=== PATIENT | male | born 1975 | race Caucasian/White ===

== ENCOUNTER 2016-11-08 02:22 | Emergency (ER) ==
[2016-11-08 02:23] VITALS: BMI 39.9
[2016-11-08] MEDS ORDERED: SODIUM CHLORIDE 1,000 ML IV STA (02:26)
[2016-11-08] MEDS ORDERED: ZOFRAN 4 MG/2 ML IVP STA (02:26)
--- NOTE | 2016-11-08 02:28 | ED.PDOC ---
General ED Provider: Dr. ZHAO BLANCHARD Chief Complaint: Abdominal Pain Stated Complaint: Patient comes to the ER with chronic abdominal pain unchanged. he states he recently changed doctors. Admits to Nausea but denies any vomiting. But has diarrhea althought he takes lactulose which should help his diarrhea. Time Seen by Physician: 02:35 Information Source: Patient Exam Limitations: No limitations Primary Care Provider: DILAN FIGUEROA Nursing and Triage Documentation Reviewed and Agree: Yes GI Complaint Exam - Abdominal Pain Complaint/Exam Onset: Gradual Duration: 1 day Symptoms Are: Still present Timing: Constant Location of Pain: Diffuse Character: Reports: Dull, Aching Aggravating: Reports: Food Associated Signs and Symptoms: Reports: Nausea, Diarrhea. Denies: Diaphoresis, Fever, Cough, Chest pain, Dizziness, Back pain, Constipation, Blood in stool, Dysuria, Urinary frequency, Decreased urine output, Decreased appetite, Discharge, Vomiting, Decreased activity Review of Systems - Review Of Systems Constitutional: Reports: No symptoms GI: Reports: Abdominal pain, Nausea. Denies: Vomiting All Other Systems: Reviewed and Negative Past Medical History - Past Medical History Previously Healthy: No Endocrine: Reports: None Cardiovascular: Reports: None Respiratory: Reports: None Hematological: Reports: None Gastrointestinal: Reports: GERD, Liver (cirrosis), Gallstones, Pancreatitis Genitourinary: Reports: None Neuro/Psych: Reports: Migraine, Anxiety, Depression Musculoskeletal: Reports: None Cancer: Reports: None - Surgical History General Surgical History: Reports: Cholecystectomy, Unknown - Family History Family History: Reports: Unknown - Social History Smoking Status: Former smoker Hx Substance Use: No (Hx ETOH abuse, Freq ER visits receives dilaudid) Alcohol Screening: None Physical Exam - Physical Exam Appearance: Well-appearing, Obese Eyes: SULEIMAN, EOMI, Conjunctiva clear ENT: Ears normal, Nose normal, Oropharynx normal Neck: Supple Respiratory: Airway patent, Breath sounds clear, Breath sounds equal, Respirations nonlabored Cardiovascular: RRR, Pulses normal, No rub, No murmur GI/: Soft, Nontender Musculoskeletal: Normal strength, ROM intact, No edema, No calf tenderness Skin: Warm, Dry, Normal color Neurological: Sensation intact, Motor intact, Reflexes intact, Cranial nerves intact, Alert, Oriented Psychiatric: Affect appropriate, Mood appropriate Re-Evaluation - Re-Evaluation Time of Re-Evaluation: 03:15 Status: Improved Vital Signs Stable: Yes Pain Level: mild Appearance: NAD Critical Care Note - Critical Care Note Total Time (mins): 0 Course - Course Hematology/Chemistry: 11/08/16 02:40 11/08/16 02:40 Orders, Labs, Meds: Lab Review 11/08/16 11/08/16 02:40 02:46 WBC 2.99 L RBC 3.93 L Hgb 12.5 L Hct 37.4 L MCV 95.2 H MCH 31.8 H MCHC 33.4 RDW Coeff of Shana 13.5 Plt Count 61 L Immature Gran % (Auto) 0.0 Neut % (Auto) 57.5 Lymph % (Auto) 28.1 [place] % (Auto) 10.7 H Eos % (Auto) 3.0 Baso % (Auto) 0.7 Immature Gran # (Auto) 0.0 Neut # 1.7 L Lymph # 0.8 [place] # 0.3 L Eos # 0.1 Baso # 0.0 Sodium 142 Potassium 3.6 Chloride 108 H Carbon Dioxide 29 Anion Gap 8.6 BUN 6 L Creatinine 0.79 Estimated GFR (MDRD) 109.00 BUN/Creatinine Ratio 7.59 Glucose 151 H Calcium 8.8 Total Bilirubin 2.18 H AST 46 H ALT 22 Alkaline Phosphatase 189 H Total Protein 6.6 Albumin 3.5 Globulin 3.1 Albumin/Globulin Ratio 1.13 Amylase 94 Lipase 21 Urine Color Yellow Urine Clarity Clear Urine pH 7.5 Ur Specific [place] 1.020 Urine Protein Negative Urine Glucose (UA) Negative Urine Ketones Negative Urine Blood Negative Urine Nitrite Negative Urine Bilirubin Negative Urine Urobilinogen 4.0 Ur Leukocyte Esterase Negative Orders Category Date Time Status ED IV/MEDIPORT/POWERPORT .ONCE EMERGENCY 11/08/16 02:27 Inactive AMYLASE Stat LAB 11/08/16 02:40 Completed CBC W/ AUTO DIFF Stat LAB 11/08/16 02:40 Completed COMPREHENSIVE METABOLIC PANEL Stat LAB 11/08/16 02:40 Completed LIPASE Stat LAB 11/08/16 02:40 Completed URINALYSIS C & S IF INDICATED Stat LAB 11/08/16 02:46 Completed 0.9 % Sodium Chloride [Saline Flush] MEDS 11/08/16 02:27 Discontinued 1 syr IVF PRN PRN Ondansetron HCl/Pf [Zofran 4 mg/2 ml] MEDS 11/08/16 02:42 Discontinued 4 mg IM ONCE STA Medications Discontinued Medications Generic Name Dose Route Start Last Admin Trade Name Freq PRN Reason Stop Dose Admin Ondansetron HCl 4 mg 11/08/16 02:42 11/08/16 03:00 Zofran 4 Mg/2 Ml IM 11/08/16 02:43 4 mg ONCE STA Administration Sodium Chloride 1 syr 11/08/16 02:27 Saline Flush IVF PRN PRN To flush IV Vital Signs: Temp Pulse Resp BP Pulse Ox 11/08/16 02:25 99.6 F 74 20 135/88 96 Departure - Departure Time of Disposition: 03:20 Disposition: HOME SELF-CARE Discharge Problem: Abdominal pain, Chronic abdominal pain Chronic pancreatitis Qualifiers: Pancreatitis type: unspecified pancreatitis type Qualifier Code: (K86.1) Other chronic pancreatitis Instructions: Abdominal Pain (ED) Condition: Fair Pt referred to PMD for follow-up: Yes Additional Instructions: Continue taking your lactulose Follow up with Your PCP in 3 days Prescriptions: Dicyclomine HCl [Bentyl] 10 mg PO TID PRN #20 capsule PRN Reason: Abdominal Pain Allergies/Adverse Reactions: Allergies No Known Allergies Allergy (Verified 11/08/16 02:30) Home Medications: Ambulatory Orders Famotidine [Pepcid] 20 mg PO QDAC 04/23/16 Dicyclomine HCl [Bentyl] 20 mg PO DAILY 05/07/16 Dicyclomine HCl [Bentyl] 10 mg PO TID PRN #20 capsule 11/08/16 Omeprazole Magnesium [Prilosec Otc] 20 mg PO DAILY 11/08/16 Disposition Discussed With: Patient
[2016-11-08 02:36] VITALS: BP 135/88; TEMP 99.6
[2016-11-08] MEDS ORDERED: ZOFRAN 4 MG/2 ML IM STA (02:42)
[2016-11-08 02:46] LABS: BASOPHILS % (AUTO) 0.7 % (0.0-3.0); EOSINOPHILS # (AUTO) 0.1 K/ul (0.0-0.7); HEMATOCRIT 37.4 % (42.0-52.0); HEMOGLOBIN 12.5 g/dl (14.0-18.0); LYMPHOCYTES # (AUTO) 0.8 K/uL (0.60-3.4); LYMPHOCYTES % (AUTO) 28.1 (10.0-50.0); MEAN CORPUSCULAR HEMOGLOBIN 31.8 pg (27.0-31.0); MEAN CORPUSCULAR HGB CONC 33.4 (31.8-35.4); MEAN CORPUSCULAR VOLUME 95.2 fl (80.0-94.0); MONOCYTES # (AUTO) 0.3 K/uL (0.4-2.0); MONOCYTES % (AUTO) 10.7 (0-10); NEUTROPHILS # (AUTO) 1.7 K/ul (2.0-6.9); NEUTROPHILS % (AUTO) 57.5; PLATELET COUNT 61 10^3/uL (140-440); RED BLOOD COUNT 3.93 10^6/ul (4.70-6.10); WHITE BLOOD COUNT 2.99 K/ul (4.2-10.2)
[2016-11-08 02:51] LABS: BILIRUBIN,URINE Negative (NEGATIVE); KETONES,URINE Negative (NEGATIVE); LEUKOCYTE ESTERASE ,URINE Negative (NEGATIVE); NITRITE,URINE Negative (NEGATIVE); PH,URINE 7.5 (5-9); PROTEIN,URINE Negative (NEGATIVE); URINE, BLOOD Negative (NEGATIVE)
[2016-11-08 02:52] LABS: ADD URINE MICROSCOPIC NO
[2016-11-08 03:06] LABS: ALBUMIN 3.5 g/dL (3.4-5.0); ALBUMIN/GLOBULIN RATIO 1.13; ANION GAP 8.6; BILIRUBIN,TOTAL 2.18 mg/dL (0.00-1.20); BUN/CREATININE RATIO 7.59; CALCIUM 8.8 mg/dL (8.2-10.2); CREATININE 0.79 mg/dL (0.60-1.10); POTASSIUM 3.6 mmol/L (3.5-5.1); TOTAL PROTEIN 6.6 g/dL (6.4-8.2)
== END 2016-11-08 03:25 | disposition home or self-care (01) ==
LOC: ED 02:22
DX: K86.1 Other chronic pancreatitis (principal); Z87.19 Personal history of other diseases of the digestive system
CPT/HCPCS: 36415; 80053; 81001; 82150; 83690; 85025; 96372; 99283

== ENCOUNTER 2016-11-17 07:40 | Emergency (ER) ==
[2016-11-17 07:41] VITALS: BMI 39.9
[2016-11-17 07:50] VITALS: BP 150/91; TEMP 99.9
[2016-11-17] MEDS ORDERED: ZOFRAN 4 MG/2 ML IM STA (07:55)
[2016-11-17 08:23] LABS: BASOPHILS % (AUTO) 0.5 % (0.0-3.0); EOSINOPHILS # (AUTO) 0.1 K/ul (0.0-0.7); EOSINOPHILS % (AUTO) 1.3 % (0.0-7.0); HEMATOCRIT 41.4 % (42.0-52.0); HEMOGLOBIN 13.6 g/dl (14.0-18.0); IMMATURE GRANULOCYTE % (AUTO) 0.3 % (0.0-5.0); LYMPHOCYTES # (AUTO) 0.7 K/uL (0.60-3.4); LYMPHOCYTES % (AUTO) 18.3 (10.0-50.0); MEAN CORPUSCULAR HEMOGLOBIN 31.1 pg (27.0-31.0); MEAN CORPUSCULAR HGB CONC 32.9 (31.8-35.4); MEAN CORPUSCULAR VOLUME 94.7 fl (80.0-94.0); MONOCYTES # (AUTO) 0.5 K/uL (0.4-2.0); MONOCYTES % (AUTO) 11.9 (0-10); NEUTROPHILS # (AUTO) 2.7 K/ul (2.0-6.9); NEUTROPHILS % (AUTO) 67.7; PLATELET COUNT 68 10^3/uL (140-440); RED BLOOD COUNT 4.37 10^6/ul (4.70-6.10); WHITE BLOOD COUNT 3.94 K/ul (4.2-10.2)
--- NOTE | 2016-11-17 08:40 | CT ---
Exam: CT abdomen and pelvis without IV contrast. Clinical indication: Abdominal pain. No further information is provided. Comparison is made to the prior study dated 09/26/2016. TECHNIQUE: Axial unenhanced CT images of the abdomen and pelvis were obtained followed by coronal a nd sagittal reformats. Findings: There is no free intra-abdominal gas or fluid. The surface of the liver has a nodular contour and is associate with hypertrophy of the left lateral lobe and caudate lobes consistent with cirrhosis. There is no definite underlying evidence of foca l hepatic lesions. The spleen is enlarged measuring 17 cm in craniocaudal length. There is prominence of the umbilical vein suggesting possible recannulization. These findings suggest portal hypertension. There has been a prior cholecystectomy. The adrenals, pancreas, and kidneys are unremarkable, given the limitations of an unenhanced CT. There is a mildly prominent chivo hepatis lymph node measuring 1.2 cm in short axis dimension, but t his is unchanged from previously. There are no other enlarged abdominal or pelvic lymph nodes, by s ize criteria. There are some areas of varicosity which are unchanged. The bowel is unremarkable. Stomach is dilated with gastric contents. The visualized bony structures are unremarkable for the patient's age. The visualized portion of the lower thorax are within normal limits. Impression: 1. Findings consistent with cirrhosis. 2. Splenomegaly and findings suggesting portal hypertension. 3. Otherwise unremarkable CT of the abdomen and pelvis, given the limitations of an unenhanced CT.
[2016-11-17 08:42] LABS: ALBUMIN 3.8 g/dL (3.4-5.0); ALBUMIN/GLOBULIN RATIO 1.09; ANION GAP 11.4; BILIRUBIN,TOTAL 2.21 mg/dL (0.00-1.20); BUN/CREATININE RATIO 7.86; CALCIUM 9.5 mg/dL (8.2-10.2); CREATININE 0.89 mg/dL (0.60-1.10); POTASSIUM 3.4 mmol/L (3.5-5.1); TOTAL PROTEIN 7.3 g/dL (6.4-8.2)
--- NOTE | 2016-11-17 08:47 | ED.PDOC ---
General ED Provider: Dr. FRANCESCO BRITTON Chief Complaint: Abdominal Pain Stated Complaint: abdominal pain Time Seen by Physician: 08:00 (kristofer present at all times ) Mode of Arrival: Walk-In Information Source: Patient Exam Limitations: No limitations Primary Care Provider: DILAN FIGUEROA Nursing and Triage Documentation Reviewed and Agree: Yes GI Complaint Exam - Abdominal Pain Complaint/Exam Onset: Gradual Duration: 1 day Symptoms Are: Still present Timing: Constant Location of Pain: Diffuse, LLQ Character: Reports: Aching Aggravating: Reports: None Alleviating: Reports: None Associated Signs and Symptoms: Denies: Diaphoresis, Fever, Cough, Chest pain, Dizziness, Back pain, Constipation, Blood in stool, Dysuria, Urinary frequency, Decreased urine output, Decreased appetite, Discharge, Nausea, Vomiting, Diarrhea, Decreased activity Related History: Reports: Similar episode AAA Risk Factors: Reports: None Cardiac Risk Factors: Reports: None Surgical Obstruction Risk Factors: Reports: None Related Surgical History: Reports: None Abdominal Findings: Present: None Differential Diagnoses: Diverticulitis, Gastroenteritis, Pancreatitis Review of Systems - Review Of Systems Constitutional: Reports: No symptoms Eyes: Reports: No symptoms Ears, Nose, Mouth, Throat: Reports: No symptoms Respiratory: Reports: No symptoms Cardiac: Reports: No symptoms GI: Reports: Abdominal pain, Diarrhea, Vomiting : Reports: No symptoms Musculoskeletal: Reports: No symptoms Skin: Reports: No symptoms Neurological: Reports: No symptoms Endocrine: Reports: No symptoms Hematologic/Lymphatic: Reports: No symptoms All Other Systems: Reviewed and Negative Past Medical History - Past Medical History Previously Healthy: No Endocrine: Reports: None Cardiovascular: Reports: None Respiratory: Reports: None Hematological: Reports: None Gastrointestinal: Reports: GERD, Liver (cirrosis), Gallstones, Pancreatitis Genitourinary: Reports: None Neuro/Psych: Reports: Migraine, Anxiety, Depression Musculoskeletal: Reports: None Cancer: Reports: None - Surgical History General Surgical History: Reports: Cholecystectomy, Unknown - Family History Family History: Reports: Unknown - Social History Smoking Status: Former smoker Hx Substance Use: No (Hx ETOH abuse, Freq ER visits receives dilaudid) Alcohol Screening: None Physical Exam - Physical Exam Appearance: Well-appearing, No pain distress, Well-nourished Eyes: SULEIMAN, EOMI, Conjunctiva clear ENT: Ears normal, Nose normal, Oropharynx normal Respiratory: Airway patent, Breath sounds clear, Breath sounds equal, Respirations nonlabored Cardiovascular: RRR, Pulses normal, No rub, No murmur GI/: Soft, Nontender, No masses, Bowel sounds normal, No Organomegaly Musculoskeletal: Normal strength, ROM intact, No edema, No calf tenderness Skin: Warm, Dry, Normal color Neurological: Sensation intact, Motor intact, Reflexes intact, Cranial nerves intact, Alert, Oriented Psychiatric: Affect appropriate, Mood appropriate Interpretation - Radiology Interpretation Radiology Interpretation By: Radiologist Radiology Results: No acute changes Critical Care Note - Critical Care Note Total Time (mins): 0 Course - Course Hematology/Chemistry: 11/17/16 08:05 11/17/16 08:05 Orders, Labs, Meds: Lab Review 11/17/16 08:05 WBC 3.94 L RBC 4.37 L Hgb 13.6 L Hct 41.4 L MCV 94.7 H MCH 31.1 H MCHC 32.9 RDW Coeff of Shana 13.9 Plt Count 68 L Immature Gran % (Auto) 0.3 Neut % (Auto) 67.7 Lymph % (Auto) 18.3 [place] % (Auto) 11.9 H Eos % (Auto) 1.3 Baso % (Auto) 0.5 Immature Gran # (Auto) 0.0 Neut # 2.7 Lymph # 0.7 [place] # 0.5 Eos # 0.1 Baso # 0.0 Sodium 146 H Potassium 3.4 L Chloride 109 H Carbon Dioxide 29 Anion Gap 11.4 BUN 7 Creatinine 0.89 Estimated GFR (MDRD) 95.00 BUN/Creatinine Ratio 7.86 Glucose 135 H Calcium 9.5 Total Bilirubin 2.21 H AST 46 H ALT 23 Alkaline Phosphatase 233 H Total Protein 7.3 Albumin 3.8 Globulin 3.5 Albumin/Globulin Ratio 1.09 Amylase 70 Lipase 23 Orders Category Date Time Status AMYLASE Stat LAB 11/17/16 07:54 Ordered CBC W/ AUTO DIFF Stat LAB 11/17/16 07:54 Ordered COMPREHENSIVE METABOLIC PANEL Stat LAB 11/17/16 07:54 Ordered LIPASE Stat LAB 11/17/16 07:54 Ordered UA [URINALYSIS C & S IF INDICATED] Stat LAB 11/17/16 07:55 Uncollected Ondansetron HCl/Pf [Zofran 4 mg/2 ml] MEDS 11/17/16 07:55 Stat 4 mg IM ONCE STA CT ABDOMEN/PELVIS WO CONTRAST Stat RADS 11/17/16 07:54 Ordered Medications Discontinued Medications Generic Name Dose Route Start Last Admin Trade Name Kiley PRN Reason Stop Dose Admin Ondansetron HCl 4 mg 11/17/16 07:55 11/17/16 08:08 Zofran 4 Mg/2 Ml IM 11/17/16 07:56 4 mg ONCE STA Administration Vital Signs: Temp Pulse Resp BP Pulse Ox 11/17/16 07:42 99.9 F H 106 H 14 150/91 H 95 Departure - Departure Time of Disposition: 08:46 Disposition: HOME SELF-CARE Discharge Problem: Abdominal pain Instructions: Abdominal Pain (ED) Condition: Good Pt referred to PMD for follow-up: No Additional Instructions: Please call your Family Physician as soon as possible to schedule a follow-up appointment. Allergies/Adverse Reactions: Allergies No Known Allergies Allergy (Verified 11/17/16 07:45) Home Medications: Ambulatory Orders Famotidine [Pepcid] 20 mg PO QDAC 04/23/16 Dicyclomine HCl [Bentyl] 10 mg PO TID PRN #20 capsule 11/08/16 Omeprazole Magnesium [Prilosec Otc] 20 mg PO DAILY 11/08/16 Disposition Discussed With: Patient
== END 2016-11-17 08:57 | disposition home or self-care (01) ==
LOC: ED 07:40
DX: R10.32 Left lower quadrant pain (principal); R10.84 Generalized abdominal pain; R19.7 Diarrhea, unspecified; R11.10 Vomiting, unspecified; Z87.19 Personal history of other diseases of the digestive system; Z79.899 Other long term (current) drug therapy
CPT/HCPCS: 36415; 80053; 82150; 83690; 85025; 96372; 99283

== ENCOUNTER 2017-01-12 19:39 | Emergency (ER) ==
[2017-01-12] MEDS ORDERED: SODIUM CHLORIDE 1,000 ML IV STA (19:41)
[2017-01-12] MEDS ORDERED: DILAUDID 1 MG/ML SYRINGE IVP STA ×2 (19:41→21:49)
[2017-01-12] MEDS ORDERED: PHENERGAN 25 MG/ML VIAL 25 MG in SODIUM CHLORIDE 50 ML IV STA (19:41)
[2017-01-12 19:43] VITALS: BP 145/77; TEMP 98.3; BMI 38.4
[2017-01-12] MEDS ORDERED: PHENERGAN 25 MG/ML VIAL ONE (19:58)
[2017-01-12 20:05] LABS: BASOPHILS % (AUTO) 0.5 % (0.0-3.0); EOSINOPHILS # (AUTO) 0.1 K/ul (0.0-0.7); EOSINOPHILS % (AUTO) 1.6 % (0.0-7.0); HEMATOCRIT 40.5 % (42.0-52.0); HEMOGLOBIN 13.8 g/dl (14.0-18.0); IMMATURE GRANULOCYTE % (AUTO) 0.2 % (0.0-5.0); LYMPHOCYTES # (AUTO) 1.1 K/uL (0.60-3.4); LYMPHOCYTES % (AUTO) 20.2 (10.0-50.0); MEAN CORPUSCULAR HEMOGLOBIN 31.9 pg (27.0-31.0); MEAN CORPUSCULAR HGB CONC 34.1 (31.8-35.4); MEAN CORPUSCULAR VOLUME 93.8 fl (80.0-94.0); MONOCYTES # (AUTO) 0.6 K/uL (0.4-2.0); MONOCYTES % (AUTO) 11.7 (0-10); NEUTROPHILS # (AUTO) 3.6 K/ul (2.0-6.9); NEUTROPHILS % (AUTO) 65.8; PLATELET COUNT 52 10^3/uL (140-440); RED BLOOD COUNT 4.32 10^6/ul (4.70-6.10); WHITE BLOOD COUNT 5.49 K/ul (4.2-10.2)
[2017-01-12 20:09] LABS: BILIRUBIN,URINE 1+ (NEGATIVE); KETONES,URINE Trace (NEGATIVE); LEUKOCYTE ESTERASE ,URINE Negative (NEGATIVE); NITRITE,URINE Negative (NEGATIVE); PH,URINE 6.5 (5-9); PROTEIN,URINE 1+ (NEGATIVE); URINE, BLOOD Negative (NEGATIVE)
[2017-01-12 20:16] LABS: ADD URINE MICROSCOPIC YES; BACTERIA,URINE TRACE (NOT PRESENT)
[2017-01-12 20:21] LABS: FLU INTERNAL QC INTERNAL QC VALID; RAPID FLU A NEGATIVE (NEGATIVE); RAPID FLU B NEGATIVE (NEGATIVE)
[2017-01-12 20:35] LABS: ALBUMIN 3.3 g/dL (3.4-5.0); ALBUMIN/GLOBULIN RATIO 0.94; ANION GAP 12.8; BILIRUBIN,TOTAL 2.27 mg/dL (0.00-1.20); BUN/CREATININE RATIO 9.45; CALCIUM 8.4 mg/dL (8.2-10.2); CREATININE 0.74 mg/dL (0.60-1.10); POTASSIUM 2.8 mmol/L (3.5-5.1); TOTAL PROTEIN 6.8 g/dL (6.4-8.2); TROPONIN I 0.013 ng/ml (0.0000-0.4000)
[2017-01-12] MEDS ORDERED: POTASSIUM CHLORIDE PREMIX RUN 40 MEQ in PREMIX 100 ML WATER 2 BAG IV STA (20:37)
--- NOTE | 2017-01-12 21:03 | CT ---
EXAM: CT scan abdomen pelvis without contrast HISTORY: Vomiting COMPARISON: CT scan abdomen pelvis 11/17/2016 FINDINGS: Contiguous axial images obtained through the abdomen pelvis without contrast utilizing 3- mm collimation. Sagittal coronal reconstructions were imaged and reviewed.. There is a small hiata l hernia. Lung bases are clear. There has been prior cholecystectomy. There is moderate splenomeg mattie. There is a nodular cirrhotic appearing liver with hypertrophy of the left lobe.. There is reca nnulization of the umbilical vein.. There is a stable 12 mm cihvo hepatis lymph node. There is no e vidence of abdominal aortic aneurysm. Kidneys are morphologically normal. There are stable varices. There are dilated air and fluid filled loops of small bowel extending from left upper quadrant with transition right upper pelvis.. Distal small bowel is of normal caliber including the T I. Free fl uid is seen in the pelvis. Scattered mesenteric lymph nodes noted most prominent within the right l ower quadrant. Mild stranding is seen within the right pericolonic region No CT evidence of appendi citis. IMPRESSION: Redemonstrated are findings consistent with cirrhosis with sequela of portal hypertension. Findings suggest small bowel obstruction with transition upper right pelvis. Free fluid is seen in the pelvis. Nonspecific inflammatory changes right pericolonic region. Results were conveyed via telephone to the emergency room nurse 8:59 p.m. 01/12/2017
--- NOTE | 2017-01-12 21:14 | ED.PDOC ---
General ED Provider: Dr. NADER BAUMAN-ER Chief Complaint: Abdominal Pain Stated Complaint: i throwing up Time Seen by Physician: 21:12 Mode of Arrival: Walk-In Information Source: Patient, Family Exam Limitations: No limitations Primary Care Provider: DILAN FIGUEROA Nursing and Triage Documentation Reviewed and Agree: Yes GI Complaint Exam - Vomiting/Diarrhea Complaint/Exam Onset/Duration: 24hrs Symptoms Are: Still present Episodes of Vomiting over last 24 Hours: 12 Episodes of Diarrhea Over Last 24 Hours: 3 Initial Severity: Mild Current Severity: Moderate Character of Vomiting: Reports: Bilious Character of Diarrhea: Reports: Watery Aggravating: Reports: Food Alleviating: Reports: None Associated Signs and Symptoms: Reports: Abdominal pain, Cramping. Denies: Dizziness, Light-headedness, Melena, Hematemesis, Fever Non-GI Risk Factors: Reports: None Surgical Obstruction Risk Factors: Reports: Bilious emesis, Prior abdominal surgery Related Surgical History: Reports: Cholecystectomy Abdominal Findings: Present: None [place] Respirations Present: No Differential Diagnoses: Bowel Obstruction, Dehydration Review of Systems - Review Of Systems Constitutional: Reports: No symptoms Eyes: Reports: No symptoms Ears, Nose, Mouth, Throat: Reports: No symptoms Respiratory: Reports: No symptoms Cardiac: Reports: No symptoms GI: Reports: Abdominal pain, Nausea, Vomiting : Reports: No symptoms Musculoskeletal: Reports: No symptoms Skin: Reports: No symptoms Neurological: Reports: No symptoms Endocrine: Reports: No symptoms Hematologic/Lymphatic: Reports: No symptoms All Other Systems: Reviewed and Negative Past Medical History - Past Medical History Previously Healthy: No Endocrine: Reports: None Cardiovascular: Reports: None Respiratory: Reports: None Hematological: Reports: None Gastrointestinal: Reports: GERD, Liver (cirrosis), Gallstones, Pancreatitis Genitourinary: Reports: None Neuro/Psych: Reports: Migraine, Anxiety, Depression Musculoskeletal: Reports: None Cancer: Reports: None - Surgical History General Surgical History: Reports: Cholecystectomy, Unknown - Family History Family History: Reports: Unknown - Social History Smoking Status: Former smoker Hx Substance Use: No (Hx ETOH abuse, Freq ER visits receives dilaudid) Alcohol Screening: None Lives: With family - Immunizations Tetanus Shot up to Date: Yes Physical Exam - Physical Exam Appearance: Well-appearing, No pain distress, Well-nourished Pain Distress: Mild Eyes: SULEIMAN ENT: Ears normal Neck: Supple Respiratory: Airway patent Cardiovascular: RRR, Pulses normal, No rub, No murmur GI/: Soft, Tender Musculoskeletal: Normal strength, ROM intact, No edema, No calf tenderness Skin: Warm, Dry, Normal color Neurological: Sensation intact, Motor intact, Reflexes intact, Cranial nerves intact, Alert, Oriented Psychiatric: Affect appropriate, Mood appropriate, Anxious Interpretation - Radiology Interpretation Radiology Interpretation By: Radiologist Radiology Results: Positive Exam Interpreted: CT Scan - EKG Interpretation Time of EKG #1: 21:14 Rate: Normal Rhythm: Sinus Ectopy: None Shepherd: NL ST Segment: Normal Re-Evaluation - Re-Evaluation Time of Re-Evaluation: 21:14 Status: Improved Vital Signs Stable: Yes Pain Level: 1 Appearance: NAD Lungs: Clear Skin: Warm and Dry Neuro: Alert and Oriented X3 CV: RRR Critical Care Note - Critical Care Note Total Time (mins): 0 Course - Course Hematology/Chemistry: 01/12/17 20:03 01/12/17 20:03 Orders, Labs, Meds: Lab Review 01/12/17 01/12/17 19:50 20:03 WBC 5.49 RBC 4.32 L Hgb 13.8 L Hct 40.5 L MCV 93.8 MCH 31.9 H MCHC 34.1 RDW Coeff of Shana 14.4 Plt Count 52 L Immature Gran % (Auto) 0.2 Neut % (Auto) 65.8 Lymph % (Auto) 20.2 [place] % (Auto) 11.7 H Eos % (Auto) 1.6 Baso % (Auto) 0.5 Immature Gran # (Auto) 0.0 Neut # 3.6 Lymph # 1.1 [place] # 0.6 Eos # 0.1 Baso # 0.0 D-Dimer 1.74 Sodium 144 Potassium 2.8 L Chloride 106 Carbon Dioxide 28 Anion Gap 12.8 BUN 7 Creatinine 0.74 Estimated GFR (MDRD) 118.00 BUN/Creatinine Ratio 9.45 Glucose 144 H Calcium 8.4 Total Bilirubin 2.27 H AST 39 H ALT 21 Alkaline Phosphatase 214 H Total Creatine Kinase 56 Troponin I 0.0130 Total Protein 6.8 Albumin 3.3 L Globulin 3.5 Albumin/Globulin Ratio 0.94 Amylase 77 Lipase 20 Urine Color Dark Urine Clarity Clear Urine pH 6.5 Ur Specific [place] 1.025 Urine Protein 1+ Urine Glucose (UA) Negative Urine Ketones Trace Urine Blood Negative Urine Nitrite Negative Urine Bilirubin 1+ Urine Urobilinogen 2.0 Ur Leukocyte Esterase Negative Ur Squamous Epith Cells 0-2 Urine Bacteria Trace Urine Mucus Trace Influenza A (Rapid) Negative Influenza B (Rapid) Negative Orders Category Date Time Status EKG-(ED ONLY) Stat CARDIO 01/12/17 19:40 Ordered ED IV/MEDIPORT/POWERPORT .ONCE EMERGENCY 01/12/17 19:41 Active NG Tube [ED NASOGASTRIC TUBE INSERTION] .ONCE EMERGENCY 01/12/17 21:12 Active AMYLASE Stat LAB 01/12/17 20:03 Completed CBC W/ AUTO DIFF Stat LAB 01/12/17 20:03 Completed COMPREHENSIVE METABOLIC PANEL Stat LAB 01/12/17 20:03 Completed CREATINE KINASE Stat LAB 01/12/17 20:03 Completed D-DIMER Stat LAB 01/12/17 20:03 Completed LIPASE Stat LAB 01/12/17 20:03 Completed MOLECULAR GROUP A STREP Stat LAB 01/12/17 19:50 Results RAPID FLU A/B Stat LAB 01/12/17 19:50 Completed STREP SCREEN Stat LAB 01/12/17 19:50 Results TROPONIN I Stat LAB 01/12/17 20:03 Completed URINALYSIS C & S IF INDICATED Stat LAB 01/12/17 19:50 Completed 0.9 % Sodium Chloride [Saline Flush] MEDS 01/12/17 19:41 Ordered 1 syr IVF PRN PRN Hydromorphone HCl [Dilaudid 1 mg/ml Syringe] MEDS 01/12/17 19:41 Discontinued 1 mg IVP ONCE STA Potassium Chloride [Potassium Chloride Premix Run] 40 MEDS 01/12/17 20:37 Active meq Premix 100 ml Water 2 bag IV ONCE Promethazine HCl [Phenergan 25 mg/ml Vial] MEDS 01/12/17 19:58 Discontinued 25 mg .ROUTE .STK-MED ONE Promethazine HCl [Phenergan 25 mg/ml Vial] 25 mg MEDS 01/12/17 19:41 Discontinued 0.9 % Sodium Chloride [Sodium Chloride] 50 ml IV ONCE Sodium Chloride 0.9% [Sodium Chloride] 1,000 ml MEDS 01/12/17 19:[address] ABDOMEN/PELVIS WO CONTRAST Stat RADS 01/12/17 19:42 Completed Medications Generic Name Dose Route Start Last Admin Trade Name Freq PRN Reason Stop Dose Admin Potassium Chloride 40 meq/ 200 mls @ 50 mls/hr 01/12/17 20:37 Sterile Water IV 01/13/17 00:36 ONCE STA Sodium Chloride 1 syr 01/12/17 19:41 01/12/17 20:36 Saline Flush IVF 1 syr PRN PRN Administration To flush IV Discontinued Medications Generic Name Dose Route Start Last Admin Trade Name Freq PRN Reason Stop Dose Admin Hydromorphone HCl 1 mg 01/12/17 19:41 01/12/17 20:36 Dilaudid 1 Mg/Ml Syringe IVP 01/12/17 19:42 1 mg ONCE STA Administration Promethazine HCl 25 mg/ Sodium 51 mls @ 75 mls/hr 01/12/17 19:41 01/12/17 20: 34 Chloride IV 01/12/17 20:21 75 mls/hr ONCE STA Administration Sodium Chloride 1,000 mls @ 1,000 mls/hr 01/12/17 19:41 01/12/17 20:33 Sodium Chloride IV 01/12/17 20:40 1,000 mls/hr BOLUS STA Administration Vital Signs: Temp Pulse Resp BP Pulse Ox 01/12/17 19:40 98.3 F 76 20 145/77 H 98 Departure - Departure Time of Disposition: 21:14 Disposition: TSF SHORT-TRM HOSP Discharge Problem: Intestinal obstruction Qualifiers: Intestinal obstruction type: other intestinal obstruction Qualifier Code: ( K56.69) Other intestinal obstruction Instructions: Bowel Obstruction (ED) Condition: Stable Pt referred to PMD for follow-up: Yes Allergies/Adverse Reactions: Allergies No Known Allergies Allergy (Verified 01/12/17 19:44) Home Medications: Ambulatory Orders Famotidine [Pepcid] 20 mg PO QDAC 04/23/16 Dicyclomine HCl [Bentyl] 10 mg PO TID PRN #20 capsule 11/08/16 Omeprazole Magnesium [Prilosec Otc] 20 mg PO DAILY 11/08/16 Transfer Form Completed: Yes Disposition Discussed With: Patient, Family
[2017-01-12] MEDS ORDERED: POTASSIUM CHLORIDE PREMIX RUN 200 ML IV ONE (21:24)
[2017-01-12] MEDS ORDERED: LIDOCAINE JELLY 2% MUCOUSMEMB STA (21:33)
== END 2017-01-12 22:20 | disposition short-term general hospital (02) ==
LOC: ED 19:39
DX: K56.69 Other intestinal obstruction (principal); Z87.19 Personal history of other diseases of the digestive system
CPT/HCPCS: 36415; 80053; 81001; 82150; 82550; 83690; 84484; 85025; 85379; 87651; 87804; 87880; 93005; 93010; 96365; 96367; 96375; 96376; 99285

== ENCOUNTER 2017-01-12 22:19 | Outpatient (CLI) ==
[2017-01-12 19:43] VITALS: BMI 38.4
== END 2017-01-12 22:20 | disposition home or self-care (01) ==
LOC: AMBL 22:19
PROVIDERS: ATTEND Internal Medicine
DX: K56.60 Unspecified intestinal obstruction (principal)

== ENCOUNTER 2017-03-23 19:51 | Outpatient (CLI) | END 2017-03-23 19:52 | disposition home or self-care (01) | LOC: AMBL 19:51 | PROVIDERS: ATTEND Family Medicine | DX: R10.9 Unspecified abdominal pain (principal); R53.1 Weakness; K74.60 Unspecified cirrhosis of liver; Z87.19 Personal history of other diseases of the digestive system ==

== ENCOUNTER 2017-05-31 00:08 | Emergency (ER) ==
[2017-05-31 00:21] VITALS: BP 152/84; TEMP 98.7; BMI 36.9
--- NOTE | 2017-05-31 00:35 | ED.PDOC ---
General ED Provider: Dr. NADER BAUMAN-ER Chief Complaint: Non-specific Complaint Stated Complaint: noted ulcerated lesions on both sides of the tongue and inner lip Time Seen by Physician: 00:33 Mode of Arrival: Walk-In Information Source: Patient Exam Limitations: No limitations [facility] and Triage Documentation Reviewed and Agree: Yes EENT Complaint Exam - Dental/Oral Complaint/Exam Mechanism of Injury: No known trauma Onset/Duration: 2 days Symptoms Are: Still present Timing: Constant Initial Severity: Mild Current Severity: Mild Location: both sides of tongue Character: Reports: Dull Aggravating: Reports: None Alleviating: Reports: None Associated Signs and Symptoms: Denies: Swelling, Discharge, Fever, Foul odor, Foul taste in mouth Related History: Reports: Previous tooth problem Dental/Oral Surgical History: Reports: None Tooth Findings: Present: Normal findings Cervical Lymphadenopathy Present: No Facial Swelling Present: No Bleeding Present: No Oropharynx Findings: Absent: Clots, Active bleeding Septal Hematoma: No Foreign Body Present: No Dysphagia Present: No Drooling Present: No Asymmetrical Tonsillar Swelling Present: No Uvula Midline: Yes Roseann-tonsillar Fluctuence: No Trismus Present: No Palatal Petechiae Present: No Scarlatinaform Rash Present: No Lesions: Present: Gums, Tongue, Buccal Mucosa Differential Diagnoses: Other (apthous ulcer) Review of Systems - Review Of Systems Constitutional: Reports: No symptoms Eyes: Reports: No symptoms Ears, Nose, Mouth, Throat: Reports: Mouth pain Respiratory: Reports: No symptoms Cardiac: Reports: No symptoms GI: Reports: No symptoms : Reports: No symptoms Musculoskeletal: Reports: No symptoms Skin: Reports: No symptoms Neurological: Reports: No symptoms Endocrine: Reports: No symptoms Hematologic/Lymphatic: Reports: No symptoms All Other Systems: Reviewed and Negative Past Medical History - Past Medical History Previously Healthy: No Endocrine: Reports: None Cardiovascular: Reports: None Respiratory: Reports: None Hematological: Reports: None Gastrointestinal: Reports: GERD, Liver (cirrosis), Gallstones, Pancreatitis Genitourinary: Reports: None Neuro/Psych: Reports: Migraine, Anxiety, Depression Musculoskeletal: Reports: None Cancer: Reports: None - Surgical History General Surgical History: Reports: Cholecystectomy, Unknown - Family History Family History: Reports: Unknown - Social History Smoking Status: Former smoker Hx Substance Use: No (Hx ETOH abuse, Freq ER visits receives dilaudid) Alcohol Screening: None Lives: With family - Immunizations Tetanus Shot up to Date: Yes Physical Exam - Physical Exam Appearance: Well-appearing, No pain distress, Well-nourished Pain Distress: Mild Eyes: SULEIMAN, EOMI, Conjunctiva clear ENT: Ears normal, Nose normal, Oropharynx normal (noted ulcerated lesions over inner lip, lateral sides of the tongue..) Neck: Supple Respiratory: Airway patent Cardiovascular: RRR, Pulses normal, No rub, No murmur GI/: Soft, Nontender, No masses, Bowel sounds normal, No Organomegaly Musculoskeletal: Normal strength, ROM intact, No edema, No calf tenderness Skin: Warm Neurological: Sensation intact, Motor intact, Reflexes intact, Cranial nerves intact, Alert, Oriented Psychiatric: Affect appropriate, Mood appropriate Critical Care Note - Critical Care Note Total Time (mins): 0 Course - Course Vital Signs: Temp Pulse Resp BP Pulse Ox 05/31/17 00:10 98.7 F 94 H 20 152/84 H 94 L Departure - Departure Time of Disposition: 00:37 Disposition: HOME SELF-CARE Discharge Problem: Aphthous stomatitis Instructions: Canker Sores (ED) Condition: Good Pt referred to PMD for follow-up: Yes Additional Instructions: viscous lidocaine swish and spit qid for pain relief Allergies/Adverse Reactions: Allergies No Known Allergies Allergy (Verified 05/31/17 00:18) Home Medications: Ambulatory Orders Famotidine [Pepcid] 20 mg PO QDAC 04/23/16 Dicyclomine HCl [Bentyl] 10 mg PO TID PRN #20 capsule 11/08/16 Omeprazole Magnesium [Prilosec Otc] 20 mg PO DAILY 11/08/16 Disposition Discussed With: Patient, Family
[2017-05-31] MEDS ORDERED: LIDOCAINE VISCOUS 2% 15 ML UD MUCOUSMEMB STA (00:40)
== END 2017-05-31 00:44 | disposition home or self-care (01) ==
LOC: ED 00:08
DX: K12.0 Recurrent oral aphthae (principal)
CPT/HCPCS: 99282

== ENCOUNTER 2017-06-08 03:45 | Outpatient (CLI) | END 2017-06-08 03:46 | disposition home or self-care (01) | LOC: AMBL 03:45 | PROVIDERS: ATTEND Family Medicine | DX: R10.84 Generalized abdominal pain (principal); K74.60 Unspecified cirrhosis of liver; Z87.19 Personal history of other diseases of the digestive system ==

== ENCOUNTER 2017-06-13 04:27 | Outpatient (CLI) | END 2017-06-13 04:28 | LOC: AMBL 04:27 | PROVIDERS: ATTEND Internal Medicine Geriatric Medicine | DX: R10.9 Unspecified abdominal pain (principal); R00.0 Tachycardia, unspecified; R06.4 Hyperventilation ==

== ENCOUNTER 2017-08-24 21:21 | Emergency (ER) ==
[2017-08-24 21:21] VITALS: BMI 36.9
[2017-08-24 21:28] VITALS: BP 139/80; TEMP 97.9
[2017-08-24 21:47] LABS: BASOPHILS % (AUTO) 0.8 % (0.0-3.0); EOSINOPHILS # (AUTO) 0.1 K/ul (0.0-0.7); EOSINOPHILS % (AUTO) 3.4 % (0.0-7.0); HEMATOCRIT 33.1 % (42.0-52.0); HEMOGLOBIN 11.4 g/dl (14.0-18.0); IMMATURE GRANULOCYTE % (AUTO) 0.3 % (0.0-5.0); LYMPHOCYTES % (AUTO) 26.9 (10.0-50.0); MEAN CORPUSCULAR HEMOGLOBIN 31.7 pg (27.0-31.0); MEAN CORPUSCULAR HGB CONC 34.4 (31.8-35.4); MEAN CORPUSCULAR VOLUME 91.9 fl (80.0-94.0); MONOCYTES # (AUTO) 0.5 K/uL (0.4-2.0); MONOCYTES % (AUTO) 12.9 (0-10); NEUTROPHILS # (AUTO) 2.1 K/ul (2.0-6.9); NEUTROPHILS % (AUTO) 55.7; PLATELET COUNT 52 10^3/uL (140-440); WHITE BLOOD COUNT 3.79 K/ul (4.2-10.2)
[2017-08-24 22:06] LABS: ALBUMIN/GLOBULIN RATIO 1.11; BILIRUBIN,TOTAL 2.53 mg/dL (0.00-1.20); CALCIUM 8.7 mg/dL (8.2-10.2); CREATININE 0.75 mg/dL (0.60-1.10); TOTAL PROTEIN 5.7 g/dL (6.4-8.2)
--- NOTE | 2017-08-24 22:52 | ED.PDOC ---
General ED Provider: Dr. NADER BAUMAN-ER Chief Complaint: Extremity Swelling/Pain Stated Complaint: i thought my bp was up0--but my legs aer swollen Time Seen by Physician: 21:25 Mode of Arrival: Walk-In Information Source: Patient Exam Limitations: No limitations [facility] and Triage Documentation Reviewed and Agree: Yes Cardiovascular Complaint Exam - Hypertension Complaint/Exam Onset/Duration: 220/160 Symptoms Are: Resolved Aggravating: Reports: None Alleviating: Reports: None Associated Signs and Symptoms: Reports: Swelling (of legs) Recent Change in Medications: Yes (he stopped all diuretics) A/V Nicking: No Papilledema Present: No JVD Present: No Carotid Bruit Present: No Femoral Pulses Bounding: No Differential Diagnoses: Hypertension, Hypertensive Urgency, Other (cirrhosis) Review of Systems - Review Of Systems Constitutional: Reports: No symptoms Eyes: Reports: No symptoms Ears, Nose, Mouth, Throat: Reports: No symptoms Respiratory: Reports: No symptoms Cardiac: Reports: Edema GI: Reports: No symptoms : Reports: No symptoms Musculoskeletal: Reports: No symptoms Skin: Reports: No symptoms Neurological: Reports: No symptoms Endocrine: Reports: No symptoms Hematologic/Lymphatic: Reports: No symptoms All Other Systems: Reviewed and Negative Past Medical History - Past Medical History Previously Healthy: No Endocrine: Reports: None Cardiovascular: Reports: None Respiratory: Reports: None Hematological: Reports: None Gastrointestinal: Reports: GERD, Liver (cirrosis), Gallstones, Pancreatitis Genitourinary: Reports: None Neuro/Psych: Reports: Migraine, Anxiety, Depression Musculoskeletal: Reports: None Cancer: Reports: None - Surgical History General Surgical History: Reports: Cholecystectomy, Unknown - Family History Family History: Reports: Unknown - Social History Smoking Status: Former smoker Hx Substance Use: No (Hx ETOH abuse, Freq ER visits receives dilaudid) Alcohol Screening: None - Immunizations Tetanus Shot up to Date: Yes Physical Exam - Physical Exam Appearance: Well-appearing, No pain distress, Well-nourished Pain Distress: Mild Eyes: SULEIMAN, EOMI, Conjunctiva clear ENT: Ears normal, Nose normal, Oropharynx normal Neck: Supple Respiratory: Airway patent Cardiovascular: RRR, Pulses normal, No rub, No murmur GI/: Soft, Nontender, No masses, Bowel sounds normal, No Organomegaly Musculoskeletal: Normal strength Skin: Warm, Dry, Normal color Neurological: Sensation intact, Motor intact, Reflexes intact, Cranial nerves intact, Alert, Oriented Psychiatric: Affect appropriate, Mood appropriate, Anxious Critical Care Note - Critical Care Note Total Time (mins): 0 Course - Course Hematology/Chemistry: 08/24/17 21:46 08/24/17 21:46 Orders, Labs, Meds: Lab Review 08/24/17 08/24/17 08/24/17 21:46 21:46 21:46 WBC 3.79 L RBC 3.60 L Hgb 11.4 L Hct 33.1 L MCV 91.9 MCH 31.7 H MCHC 34.4 RDW Coeff of Shana 14.6 Plt Count 52 L Immature Gran % (Auto) 0.3 Neut % (Auto) 55.7 Lymph % (Auto) 26.9 [place] % (Auto) 12.9 H Eos % (Auto) 3.4 Baso % (Auto) 0.8 Immature Gran # (Auto) 0.0 Neut # 2.1 Lymph # 1.0 [place] # 0.5 Eos # 0.1 Baso # 0.0 D-Dimer (Manual) 428.20 Sodium 142 Potassium 3.0 L Chloride 104 Carbon Dioxide 28 Anion Gap 13.0 BUN 6 L Creatinine 0.75 Estimated GFR (MDRD) 115.00 BUN/Creatinine Ratio 8.00 Glucose 155 H Calcium 8.7 Total Bilirubin 2.53 H AST 41 H ALT 26 Alkaline Phosphatase 172 H Total Protein 5.7 L Albumin 3.0 L Globulin 2.7 Albumin/Globulin Ratio 1.11 Orders Category Date Time Status CBC W/ AUTO DIFF Stat LAB 08/24/17 21:46 Completed COMPREHENSIVE METABOLIC PANEL Stat LAB 08/24/17 21:46 Completed D-DIMER Stat LAB 08/24/17 21:46 Completed URINALYSIS C & S IF INDICATED Stat LAB 08/24/17 21:36 Uncollected Vital Signs: Temp Pulse Resp BP Pulse Ox 08/24/17 21:21 97.9 F 90 24 139/80 96 LEO Risk Score LEO Risk Score: Risk Score Odds of by 30D 0 0.1 (0.1-0.2) 1 0.3 (0.2-0.3) 2 0.4 (0.3-0.5) 3 0.7 (0.6-0.9) 4 1.2 (1.0-1.5) 5 2.2 (1.9-2.6) 6 3.0 (2.5-3.6) 7 4.8 (3.8-6.1) Departure - Departure Time of Disposition: 22:51 Disposition: AMA Discharge Problem: Edema of lower extremity Instructions: Leg Edema (ED) Condition: Stable Pt referred to PMD for follow-up: Yes Allergies/Adverse Reactions: Allergies No Known Allergies Allergy (Verified 08/24/17 21:28) Home Medications: Ambulatory Orders 1 [No Reported Medications] 08/24/17 Disposition Discussed With: Patient
== END 2017-08-24 22:42 | disposition left against medical advice (07) ==
LOC: ED 21:21
DX: R60.0 Localized edema (principal); I10 Essential (primary) hypertension; K74.60 Unspecified cirrhosis of liver
CPT/HCPCS: 36415; 80053; 85025; 85379; 99284

== ENCOUNTER 2017-09-10 21:32 | Emergency (ER) ==
[2017-09-10 21:32] VITALS: BMI 36.9
[2017-09-10 21:34] VITALS: BP 172/109; TEMP 99.1
[2017-09-10] MEDS ORDERED: PROTONIX IV IVP STA (21:49)
[2017-09-10] MEDS ORDERED: SODIUM CHLORIDE 1,000 ML IV STA (21:49)
[2017-09-10] MEDS ORDERED: ZOFRAN 4 MG/2 ML IVP STA (21:49)
[2017-09-10] MEDS ORDERED: TORADOL IVP STA (21:56)
[2017-09-10] MEDS ORDERED: PHENERGAN 25 MG/ML VIAL 25 MG in SODIUM CHLORIDE 50 ML IV STA (21:56)
[2017-09-10 22:02] LABS: BASOPHILS # (AUTO) 0.1 K/uL (0-0.2); BASOPHILS % (AUTO) 0.5 % (0.0-3.0); EOSINOPHILS # (AUTO) 0.2 K/ul (0.0-0.7); EOSINOPHILS % (AUTO) 2.2 % (0.0-7.0); HEMATOCRIT 39.5 % (42.0-52.0); IMMATURE GRANULOCYTE % (AUTO) 0.2 % (0.0-5.0); LYMPHOCYTES # (AUTO) 1.1 K/uL (0.60-3.4); LYMPHOCYTES % (AUTO) 11.8 (10.0-50.0); MEAN CORPUSCULAR HEMOGLOBIN 31.8 pg (27.0-31.0); MEAN CORPUSCULAR HGB CONC 35.4 (31.8-35.4); MEAN CORPUSCULAR VOLUME 89.8 fl (80.0-94.0); MONOCYTES # (AUTO) 0.9 K/uL (0.4-2.0); MONOCYTES % (AUTO) 9.8 (0-10); NEUTROPHILS # (AUTO) 7.2 K/ul (2.0-6.9); NEUTROPHILS % (AUTO) 75.5; PLATELET COUNT 75 10^3/uL (140-440); WHITE BLOOD COUNT 9.52 K/ul (4.2-10.2)
[2017-09-10] MEDS ORDERED: PHENERGAN 25 MG/ML VIAL ONE (22:06)
--- NOTE | 2017-09-10 22:10 | ED.PDOC ---
General ED Provider: Dr. ZHAO BLANCHARD Chief Complaint: Abdominal Pain Stated Complaint: started having abdominal pain nausea and vomiting 4 hours ago. Time Seen by Physician: 21:35 Mode of Arrival: Walk-In Information Source: Patient Exam Limitations: No limitations [facility] Nursing and Triage Documentation Reviewed and Agree: Yes GI Complaint Exam - Abdominal Pain Complaint/Exam Onset: Sudden Duration: constant Symptoms Are: Still present Timing: Constant Initial Severity: Severe Current Severity: Severe Location of Pain: Epigastric Radiates To: Reports: Back Character: Reports: Dull, Aching, Throbbing Aggravating: Reports: Food Alleviating: Reports: None Associated Signs and Symptoms: Reports: Back pain, Decreased appetite, Nausea, Vomiting. Denies: Diaphoresis, Fever, Cough, Chest pain, Dizziness, Constipation, Blood in stool, Dysuria, Urinary frequency, Decreased urine output , Discharge, Diarrhea, Decreased activity Related History: Reports: Similar episode (with prior pancreatitis ) AAA Risk Factors: Reports: None Cardiac Risk Factors: Reports: None Testicular Torsion Risk Factors: Reports: None Surgical Obstruction Risk Factors: Reports: None Related Surgical History: Reports: Cholecystectomy Abdominal Findings: Absent: Pulsatile mass, Abdominal distention, Unequal femoral pulses, Rebound tenderness, McBurney's Point tender, CVA Tenderness, Hernia, Inguinal swelling Differential Diagnoses: Constipation, Diverticulitis, Pancreatitis, UTI Review of Systems - Review Of Systems Constitutional: Reports: No symptoms GI: Reports: Nausea, Poor appetite, Vomiting : Reports: No symptoms Musculoskeletal: Reports: No symptoms Skin: Reports: No symptoms Neurological: Reports: No symptoms Endocrine: Reports: No symptoms Hematologic/Lymphatic: Reports: No symptoms All Other Systems: Reviewed and Negative Past Medical History - Past Medical History Previously Healthy: No Endocrine: Reports: None Cardiovascular: Reports: None Respiratory: Reports: None Hematological: Reports: None Gastrointestinal: Reports: GERD, Liver (cirrosis), Gallstones, Pancreatitis Genitourinary: Reports: None Neuro/Psych: Reports: Migraine, Anxiety, Depression Musculoskeletal: Reports: None Cancer: Reports: None - Surgical History General Surgical History: Reports: Cholecystectomy, Unknown - Family History Family History: Reports: Unknown - Social History Smoking Status: Former smoker Hx Substance Use: No Alcohol Screening: None - Immunizations Tetanus Shot up to Date: Yes Physical Exam - Physical Exam Appearance: Ill-appearing Ill-appearing: Moderate Pain Distress: Severe Eyes: SULEIMAN, EOMI, Conjunctiva clear ENT: Ears normal, Nose normal, Oropharynx normal Neck: Supple Respiratory: Airway patent Cardiovascular: Pulses normal, No rub, No murmur, Tachycardia GI/: Soft, Tender (diffusely ) Musculoskeletal: Normal strength, ROM intact, No edema, No calf tenderness Skin: Warm, Dry, Normal color Neurological: Sensation intact, Motor intact, Reflexes intact, Alert, Oriented Psychiatric: Anxious Interpretation - Radiology Interpretation Radiology Interpretation By: Radiologist Radiology Results: No acute changes (? enteritis) Exam Interpreted: CT Scan (Abdomen and Pelvis ) Critical Care Note - Critical Care Note Total Time (mins): 0 Course - Course Hematology/Chemistry: 09/10/17 22:00 09/10/17 22:00 Orders, Labs, Meds: Lab Review 09/10/17 09/10/17 09/10/17 20:45 22:00 22:00 WBC 9.52 RBC 4.40 L Hgb 14.0 Hct 39.5 L MCV 89.8 MCH 31.8 H MCHC 35.4 RDW Coeff of Shana 14.6 Plt Count 75 L Immature Gran % (Auto) 0.2 Neut % (Auto) 75.5 Lymph % (Auto) 11.8 Major % (Auto) 9.8 Eos % (Auto) 2.2 Baso % (Auto) 0.5 Immature Gran # (Auto) 0.0 Neut # 7.2 H Lymph # 1.1 Major # 0.9 Eos # 0.2 Baso # 0.1 Sodium 147 H Potassium 2.9 L Chloride 109 H Carbon Dioxide 28 Anion Gap 12.9 BUN 7 Creatinine 0.80 Estimated GFR (MDRD) 107.00 BUN/Creatinine Ratio 8.75 Glucose 136 H Calcium 9.4 Total Bilirubin 2.87 H AST 52 H ALT 30 Alkaline Phosphatase 230 H Total Protein 6.7 Albumin 3.5 Globulin 3.2 Albumin/Globulin Ratio 1.09 Amylase 91 Lipase 25 Urine Color Yellow Urine Clarity Cloudy Urine pH 7.0 Ur Specific [place] 1.020 Urine Protein Trace Urine Glucose (UA) Negative Urine Ketones Negative Urine Blood Negative Urine Nitrite Negative Urine Bilirubin 1+ Urine Urobilinogen 1.0 Ur Leukocyte Esterase Negative Urine Microscopic RBC 0-2 Ur Squamous Epith Cells Not present Calcium Oxalate Crystal Trace Amorphous Sediment 1+ Hyaline Casts 0-2 Fine Granular Casts 0-2 Urine Mucus Trace Orders Category Date Time Status ED IV/MEDIPORT/POWERPORT .ONCE EMERGENCY 09/10/17 21:49 Active AMYLASE Stat LAB 09/10/17 22:00 Completed CBC W/ AUTO DIFF Stat LAB 09/10/17 22:00 Completed COMPREHENSIVE METABOLIC PANEL Stat LAB 09/10/17 22:00 Completed LIPASE Stat LAB 09/10/17 22:00 Completed URINALYSIS C & S IF INDICATED Stat LAB 09/10/17 20:45 Completed 0.9 % Sodium Chloride [Saline Flush] MEDS 09/10/17 21:49 Discontinued 1 syr IVF PRN PRN Butorphanol Tartrate [Stadol] MEDS 09/10/17 22:43 Discontinued 2 mg IVP ONCE STA Dicyclomine Inj [Bentyl] MEDS 09/10/17 23:33 Discontinued 20 mg IM ONCE STA Ketorolac Tromethamine [Toradol] MEDS 09/10/17 21:56 Discontinued 30 mg IVP ONCE STA Ondansetron HCl/Pf [Zofran 4 mg/2 ml] MEDS 09/10/17 21:49 Discontinued 4 mg IVP ONCE STA Pantoprazole Sodium [Protonix IV] MEDS 09/10/17 21:49 Discontinued 40 mg IVP ONCE STA Potassium Chloride [K-Dur] MEDS 09/10/17 23:36 Discontinued 20 meq PO ONCE STA Potassium Chloride [K-Dur] MEDS 09/10/17 22:43 Discontinued 40 meq PO ONCE STA Promethazine HCl [Phenergan 25 mg/ml Vial] MEDS 09/10/17 22:06 Discontinued 25 mg .ROUTE .STK-MED ONE Promethazine HCl [Phenergan 25 mg/ml Vial] 25 mg MEDS 09/10/17 21:56 Discontinued 0.9 % Sodium Chloride [Sodium Chloride] 50 ml IV ONCE Sodium Chloride 0.9% [Sodium Chloride] 1,000 ml MEDS 09/10/17 21:[address] ABD/PEL WO RENAL STONE PROT Stat RADS 09/10/17 21:49 Completed Medications Discontinued Medications Generic Name Dose Route Start Last Admin Trade Name Freq PRN Reason Stop Dose Admin Butorphanol Tartrate 2 mg 09/10/17 22:43 09/10/17 22:52 Stadol IVP 09/10/17 22:44 2 mg ONCE STA Administration Dicyclomine HCl 20 mg 11/08/17 23:33 09/10/17 23:44 Bentyl IM 09/10/17 23:34 20 mg ONCE STA Administration Sodium Chloride 1,000 mls @ 1,000 mls/hr 09/10/17 21:49 09/10/17 22:03 Sodium Chloride IV 09/10/17 22:48 1,000 mls/hr BOLUS STA Administration Promethazine HCl 25 mg/ Sodium 51 mls @ 75 mls/hr 09/10/17 21:56 09/10/17 22: 02 Chloride IV 09/10/17 22:36 75 mls/hr ONCE STA Administration Ketorolac Tromethamine 30 mg 09/10/17 21:56 09/10/17 22:02 Toradol IVP 09/10/17 21:57 30 mg ONCE STA Administration Ondansetron HCl 4 mg 09/10/17 21:49 09/10/17 23:45 Zofran 4 Mg/2 Ml IVP 09/10/17 21:50 Not Given ONCE STA Pantoprazole Sodium 40 mg 09/10/17 21:49 09/10/17 22:03 Protonix Iv IVP 09/10/17 21:50 40 mg ONCE STA Administration Potassium Chloride 40 meq 09/10/17 22:43 09/10/17 22:52 K-Dur PO 09/10/17 22:44 40 meq ONCE STA Administration Potassium Chloride 20 meq 09/10/17 23:36 09/10/17 23:44 K-Dur PO 09/10/17 23:37 20 meq ONCE STA Administration Sodium Chloride 1 syr 09/10/17 21:49 09/10/17 22:03 Saline Flush IVF 1 syr PRN PRN Administration To flush IV Vital Signs: Temp Pulse Resp BP Pulse Ox 09/10/17 21:32 99.1 F 106 H 20 172/109 H 95 Departure - Departure Time of Disposition: 23:32 Disposition: HOME SELF-CARE Discharge Problem: Abdominal pain Instructions: Abdominal Pain (ED), Chronic Abdominal Pain (ED) Condition: Fair Pt referred to PMD for follow-up: Yes Additional Instructions: Follow up with PCP Push fluids Take mediations as prescribed Prescriptions: Dicyclomine HCl [Bentyl] 10 mg PO TID PRN #15 capsule PRN Reason: Abdominal Pain Ondansetron [Zofran Odt] 4 mg PO Q8H PRN #15 tab.rapdis PRN Reason: Nausea / Vomiting Allergies/Adverse Reactions: Allergies No Known Allergies Allergy (Verified 09/10/17 22:17) Home Medications: Ambulatory Orders Dicyclomine HCl [Bentyl] 10 mg PO TID PRN #15 capsule 09/10/17 Lactulose 10 gm PO TID 09/10/17 Ondansetron HCl [Zofran] 4 mg PO Q4H PRN 09/10/17 Ondansetron [Zofran Odt] 4 mg PO Q8H PRN #15 tab.rapdis 09/10/17 Potassium Chloride [K-Dur] 20 meq PO DAILY 09/10/17
[2017-09-10 22:23] LABS: ALBUMIN 3.5 g/dL (3.4-5.0); ALBUMIN/GLOBULIN RATIO 1.09; ANION GAP 12.9; BILIRUBIN,TOTAL 2.87 mg/dL (0.00-1.20); BUN/CREATININE RATIO 8.75; CALCIUM 9.4 mg/dL (8.2-10.2); CREATININE 0.8 mg/dL (0.60-1.10); POTASSIUM 2.9 mmol/L (3.5-5.1); TOTAL PROTEIN 6.7 g/dL (6.4-8.2)
--- NOTE | 2017-09-10 22:40 | CT ---
EXAM: CT abdomen pelvis without intravenous contrast 09/10/2017. Sagittal and coronal reformatted i mages obtained HISTORY: Abdominal pain. COMPARISON: 01/12/2017 FINDINGS: Cirrhotic morphology of the liver. Perihepatic ascites. Status post cholecystectomy. The adrenal glands and kidneys show no acute abnormality. Splenomegaly. The spleen measures up to 1 7.2 cm craniocaudal. No peripancreatic inflammatory change. Air-fluid levels throughout small bowel and colon. Correlate for enteritis/diarrhea. Questionable small bowel mucosal thickening within the right aspect of the abdomen. IMPRESSION: 1. Cirrhotic morphology of the liver. 2. Small quantity abdominal and pelvic ascites. 3. Splenomegaly. 4. Air-fluid levels of small bowel and colon. Questionable small bowel mucosal thickening. Correla te for enteritis/diarrhea.
[2017-09-10] MEDS ORDERED: K-DUR PO STA ×2 (22:43→23:36)
[2017-09-10] MEDS ORDERED: STADOL IVP STA (22:43)
[2017-09-10 22:59] LABS: BILIRUBIN,URINE 1+ (NEGATIVE); KETONES,URINE Negative (NEGATIVE); LEUKOCYTE ESTERASE ,URINE Negative (NEGATIVE); NITRITE,URINE Negative (NEGATIVE); PROTEIN,URINE Trace (NEGATIVE); URINE, BLOOD Negative (NEGATIVE)
[2017-09-10 23:08] LABS: ADD URINE MICROSCOPIC YES
[2017-09-10] MEDS ORDERED: BENTYL IM STA (23:33)
== END 2017-09-10 23:52 | disposition home or self-care (01) ==
LOC: ED 21:32
DX: R10.9 Unspecified abdominal pain (principal); R11.2 Nausea with vomiting, unspecified; Z87.19 Personal history of other diseases of the digestive system
CPT/HCPCS: 36415; 74176; 80053; 81001; 82150; 83690; 85025; 96361; 96365; 96366; 96372; 96375; 99284

== ENCOUNTER 2017-11-10 05:24 | Outpatient (CLI) | END 2017-11-10 05:52 | LOC: AMBL 05:24 | PROVIDERS: ATTEND Family Medicine | DX: R10.9 Unspecified abdominal pain (principal); R11.0 Nausea; R00.0 Tachycardia, unspecified; R53.1 Weakness; K76.9 Liver disease, unspecified; K86.1 Other chronic pancreatitis ==

== ENCOUNTER 2017-12-15 05:19 | Outpatient (CLI) ==
[2017-12-15 05:51] VITALS: BMI 34.0
== END 2017-12-15 05:20 | disposition critical access hospital (66) ==
LOC: AMBL 05:19
PROVIDERS: ATTEND Family Medicine
DX: S99.911A Unspecified injury of right ankle, initial encounter (principal); W00.0XXA Fall on same level due to ice and snow, initial encounter

== ENCOUNTER 2017-12-15 05:40 | Emergency (ER) ==
[2017-12-15 05:51] VITALS: BP 128/80; TEMP 98.1; BMI 34.0
--- NOTE | 2017-12-15 06:22 | CT ---
EXAM: CT scan right ankle HISTORY: Injury and pain COMPARISON: None. FINDINGS: Contiguous axial images obtained through the ankle without contrast utilizing 2-mm collima tion. Sagittal coronal reconstructions were imaged and reviewed.. There is a well-corticated bony b isabella adjacent to the medial malleolus which has chronic appearance. There is no acute fracture or dis location. Plantar and retrocalcaneal spurs are noted.. Surrounding soft tissues are unremarkable. IMPRESSION: No acute findings.
[2017-12-15] MEDS ORDERED: NORCO 7.5-325 PO STA (06:24)
--- NOTE | 2017-12-15 06:27 | ED.PDOC ---
General ED Provider: Dr. NADER BAUMAN-ER Chief Complaint: Ankle Pain/Injury Stated Complaint: i slipped on the ice--i hurt my ankle Time Seen by Physician: 05:45 Mode of Arrival: Ambulance Information Source: Patient, EMT Exam Limitations: No limitations [facility] and Triage Documentation Reviewed and Agree: Yes Reviewed sepsis parameters & appropriate labs ordered?: Yes System Inflammatory Response Syndrome: Not Applicable Sepsis Protocol: For patient's 13 years and over: Temp is 96.8 and below OR 101 and greater Pulse >90 BPM Resp >20/minute Acutely Altered Mental Status Are patient's symptoms suggestive of a new infection, such as: -Pneumonia -Skin, Soft Tissue -Endocarditis -UTI -Bone, Joint Infection -Implantable Device -Acute Abdominal Infection -Wound Infection -Meningitis -Blood Stream Catheter Infection -Unknown Musculoskeletal Complaint Exam - Lower Extremity Complaint/Exam Location of Pain: Reports: Right, Ankle Mechanism of Injury: Reports: Trauma Onset/Duration: several hours Symptoms Are: Still present Onset of Pain: Reports: Immediate Initial Severity: Mild Current Severity: Mild Location: Reports: Discrete (right ankle) Character: Reports: Dull, Aching Aggravating: Reports: Movement, Weight bearing Able to Bear Weight: Yes Associated Signs and Symptoms: Reports: Swelling, Bruising. Denies: Redness, Fever, Weakness, Numbness, Tingling Lower Extremity Findings: Present: Swelling, Ecchymosis, Tenderness, Limited range of motion NV Bundle Intact Distal to Injury: Yes Compartment Syndrome Risk Factors: Present: Pain Verena's Sign Present: No Differential Diagnoses: Fracture, Strain, Sprain Review of Systems - Review Of Systems Constitutional: Reports: No symptoms Eyes: Reports: No symptoms Ears, Nose, Mouth, Throat: Reports: No symptoms Respiratory: Reports: No symptoms Cardiac: Reports: No symptoms GI: Reports: No symptoms : Reports: No symptoms Musculoskeletal: Reports: Joint pain, Joint swelling Skin: Reports: No symptoms Neurological: Reports: No symptoms Endocrine: Reports: No symptoms Hematologic/Lymphatic: Reports: No symptoms All Other Systems: Reviewed and Negative Past Medical History - Past Medical History Previously Healthy: No Endocrine: Reports: None Cardiovascular: Reports: None Respiratory: Reports: None Hematological: Reports: None Gastrointestinal: Reports: GERD, Liver (cirrosis), Gallstones, Pancreatitis Genitourinary: Reports: None Neuro/Psych: Reports: Migraine, Anxiety, Depression Musculoskeletal: Reports: None Cancer: Reports: None - Surgical History General Surgical History: Reports: Cholecystectomy, Unknown - Family History Family History: Reports: Unknown - Social History Smoking Status: Former smoker Hx Substance Use: Yes (ALCOHOL) Alcohol Screening: None Lives: With family - Immunizations Tetanus Shot up to Date: Yes Physical Exam - Physical Exam Appearance: Well-appearing, No pain distress, Well-nourished Pain Distress: Moderate Eyes: SULEIMAN ENT: Ears normal Neck: Supple Respiratory: Airway patent, Breath sounds clear, Breath sounds equal, Respirations nonlabored Cardiovascular: RRR, Pulses normal, No rub, No murmur GI/: Soft, Nontender, No masses, Bowel sounds normal, No Organomegaly Musculoskeletal: Limited ROM Skin: Warm Neurological: Sensation intact, Motor intact, Reflexes intact, Cranial nerves intact, Alert, Oriented Psychiatric: Affect appropriate, Mood appropriate Interpretation - Radiology Interpretation Radiology Interpretation By: Radiologist Radiology Results: Negative Exam Interpreted: CT Scan Critical Care Note - Critical Care Note Total Time (mins): 0 Course - Course Orders, Labs, Meds: Orders Category Date Time Status ED MADIE WRAP .ONCE EMERGENCY 12/15/17 06:24 Active ED CRUTCHES .ONCE EMERGENCY 12/15/17 06:24 Active ED SPLINT APPLICATION .ONCE EMERGENCY 12/15/17 06:24 Active Hydrocodone Bit/Acetaminophen [[place] 7.5-325] MEDS 12/15/17 06:24 Stat 1 tab PO ONCE STA CT ANKLE RIGHT WO CONTRAST Stat RADS 12/15/17 05:43 Completed Medications Generic Name Dose Route Start Last Admin Trade Name Freq PRN Reason Stop Dose Admin Acetaminophen/Hydrocodone Bitart 1 tab 12/15/17 06:24 [place] 7.5-325 PO 12/15/17 06:25 ONCE STA Vital Signs: Temp Pulse Resp BP Pulse Ox 12/15/17 05:41 98.1 F 70 18 128/80 98 Departure - Departure Time of Disposition: 06:27 Disposition: HOME SELF-CARE Discharge Problem: Ankle pain Instructions: Ankle Sprain (ED) Condition: Good Pt referred to PMD for follow-up: Yes IPMP verified?: No Additional Instructions: stay in splint and crutches--norco 7.5mg q 4hrs prn pain #10--f/u with pcp Allergies/Adverse Reactions: Allergies No Known Allergies Allergy (Verified 12/15/17 05:47) Home Medications: Ambulatory Orders Lactulose 10 gm PO TID 09/10/17 Ondansetron HCl [Zofran] 4 mg PO Q4H PRN 09/10/17 Potassium Chloride [K-Dur] 20 meq PO DAILY 09/10/17 Disposition Discussed With: Patient
== END 2017-12-15 06:55 | disposition home or self-care (01) ==
LOC: ED 05:40
DX: S93.401A Sprain of unspecified ligament of right ankle, initial encounter (principal); W00.0XXA Fall on same level due to ice and snow, initial encounter
CPT/HCPCS: 99283

== ENCOUNTER 2018-03-25 09:21 | Emergency (ER) ==
[2018-03-25 09:26] VITALS: BP 137/84; TEMP 98.8; BMI 33.7
--- NOTE | 2018-03-25 10:23 | CT ---
EXAM: CT of the abdomen pelvis without contrast History: Right upper quadrant abdominal pain. Comparison: CT abdomen pelvis 01/12/2017 Technique: Multiplanar CT images through the abdomen pelvis were obtained without the administration of IV contrast Findings: Lung bases are free of consolidation. No acute osseous abnormalities. Status post cholecystectomy. Nodular cirrhotic liver again noted. Spleen is enlarged. No renal sto jose miguel and no hydronephrosis. No bladder wall thickening. Adrenal glands are unremarkable. There is m esenteric edema and trace ascites. Wall thickening of the distal esophagus. Upper abdominal collate ral vessels/varices. Probable esophageal varices. Wall thickening of the right side of the colon. Prostate is not enlarged. Probably reactive upper abdominal and retroperitoneal lymph nodes. No bow el obstruction. Impression: 1. Cirrhosis with stigmata of portal venous hypertension including splenomegaly, varices and trace a scites. 2. Mesenteric edema probably related to the cirrhosis. Underlying pancreatitis or enteritis is not excluded. There is no bowel obstruction. 3. Wall thickening of the right side of the colon probably related to portal hypertensive enteropath y. Infectious or inflammatory colitis is not excluded. 4. Wall thickening of the distal esophagus could be due to esophagitis or esophageal varices.
--- NOTE | 2018-03-25 10:24 | ED.PDOC ---
General ED Provider: Dr. FRANCESCO BRITTON Chief Complaint: Abdominal Pain Stated Complaint: ABDOMINAL OAIN CHRONIC Time Seen by Physician: 09:30 Mode of Arrival: Walk-In Information Source: Patient Exam Limitations: No limitations Primary Care Provider: [facility] Nursing and Triage Documentation Reviewed and Agree: Yes Reviewed sepsis parameters & appropriate labs ordered?: Yes System Inflammatory Response Syndrome: Not Applicable Sepsis Protocol: For patient's 13 years and over: Temp is 96.8 and below OR 101 and greater Pulse >90 BPM Resp >20/minute Acutely Altered Mental Status Are patient's symptoms suggestive of a new infection, such as: -Pneumonia -Skin, Soft Tissue -Endocarditis -UTI -Bone, Joint Infection -Implantable Device -Acute Abdominal Infection -Wound Infection -Meningitis -Blood Stream Catheter Infection -Unknown System Inflammatory Response Syndrome: Not Applicable GI Complaint Exam - Abdominal Pain Complaint/Exam Onset: Gradual Duration: 2 DAYS CHRONIC ISSUE Symptoms Are: Still present Timing: Intermittent Initial Severity: Moderate Location of Pain: RUQ, LUQ, Epigastric Radiates To: Denies: Chest, Back, Flank, LLQ, RLQ, Inguinal Character: Reports: Aching Aggravating: Reports: None Alleviating: Reports: None Associated Signs and Symptoms: Denies: Diaphoresis, Fever, Cough, Chest pain, Dizziness, Back pain, Constipation, Blood in stool, Dysuria, Urinary frequency, Decreased urine output, Decreased appetite, Discharge, Nausea, Vomiting, Diarrhea, Decreased activity Related History: Reports: Similar episode ([place]Y) AAA Risk Factors: Reports: None Cardiac Risk Factors: Reports: None Testicular Torsion Risk Factors: Reports: None Surgical Obstruction Risk Factors: Reports: None Related Surgical History: Reports: None Abdominal Findings: Present: None Differential Diagnoses: Appendicitis, Bowel Obstruction, Constipation, Hepatitis Review of Systems - Review Of Systems Constitutional: Reports: No symptoms Eyes: Reports: No symptoms Ears, Nose, Mouth, Throat: Reports: No symptoms Respiratory: Reports: No symptoms Cardiac: Reports: No symptoms GI: Reports: Abdominal pain : Reports: No symptoms Musculoskeletal: Reports: No symptoms Skin: Reports: No symptoms Neurological: Reports: No symptoms Endocrine: Reports: No symptoms Hematologic/Lymphatic: Reports: No symptoms All Other Systems: Reviewed and Negative Past Medical History - Past Medical History Previously Healthy: No Endocrine: Reports: None Cardiovascular: Reports: None Respiratory: Reports: None Hematological: Reports: None Gastrointestinal: Reports: GERD, Liver (cirrosis), Gallstones, Pancreatitis Genitourinary: Reports: None Neuro/Psych: Reports: Migraine, Anxiety, Depression Musculoskeletal: Reports: None Cancer: Reports: None - Surgical History General Surgical History: Reports: Cholecystectomy, Unknown - Family History Family History: Reports: Unknown - Social History Smoking Status: Former smoker Hx Substance Use: Yes (ALCOHOL) Alcohol Screening: None Physical Exam - Physical Exam Appearance: Well-appearing, No pain distress, Well-nourished Eyes: SULEIMAN, EOMI, Conjunctiva clear ENT: Ears normal, Nose normal, Oropharynx normal Respiratory: Airway patent, Breath sounds clear, Breath sounds equal, Respirations nonlabored Cardiovascular: RRR, Pulses normal, No rub, No murmur GI/: Soft, Nontender, No masses, Bowel sounds normal, No Organomegaly Musculoskeletal: Normal strength, ROM intact, No edema, No calf tenderness Skin: Warm, Dry, Normal color Neurological: Sensation intact, Motor intact, Reflexes intact, Cranial nerves intact, Alert, Oriented Psychiatric: Affect appropriate, Mood appropriate Critical Care Note - Critical Care Note Total Time (mins): 0 Course - Course Hematology/Chemistry: 03/25/18 09:46 03/25/18 09:46 Orders, Labs, Meds: Lab Review 03/25/18 03/25/18 09:46 09:46 WBC 3.85 L RBC 3.64 L Hgb 11.2 L Hct 32.2 L MCV 88.5 MCH 30.8 MCHC 34.8 RDW Coeff of Shana 13.7 Plt Count 56 L Immature Gran % (Auto) 0.3 Neut % (Auto) 57.1 Lymph % (Auto) 23.1 [place] % (Auto) 13.5 H Eos % (Auto) 5.2 Baso % (Auto) 0.8 Immature Gran # (Auto) 0.0 Neut # (Auto) 2.2 Lymph # (Auto) 0.9 [place] # (Auto) 0.5 Eos # (Auto) 0.2 Baso # (Auto) 0.0 Sodium 142 Potassium 3.2 L Chloride 109 H Carbon Dioxide 24 Anion Gap 12.2 BUN 7 Creatinine 0.75 Estimated GFR (MDRD) 115.00 BUN/Creatinine Ratio 9.33 Glucose 150 H Calcium 8.3 Total Bilirubin 2.9 H AST 24 ALT 15 Alkaline Phosphatase 154 H Total Protein 5.5 L Albumin 2.7 L Globulin 2.8 Albumin/Globulin Ratio 0.96 Amylase 90 Lipase 36 Orders Category Date Time Status AMYLASE Stat LAB 03/25/18 09:46 Completed CBC W/ AUTO DIFF Stat LAB 03/25/18 09:46 Completed COMPREHENSIVE METABOLIC PANEL Stat LAB 03/25/18 09:46 Completed LIPASE Stat LAB 03/25/18 09:46 Completed URINALYSIS C & S IF INDICATED Stat LAB 03/25/18 09:[address] ABDOMEN/PELVIS WO CONTRAST Stat RADS 03/25/18 09:33 Completed Vital Signs: Temp Pulse Resp BP Pulse Ox 03/25/18 09:22 98.8 F 90 20 137/84 97 Departure - Departure Time of Disposition: 10:31 Disposition: HOME SELF-CARE Discharge Problem: Abdominal pain Anemia Qualifiers: Anemia type: unspecified type Qualified Code(s): D64.9 - Anemia, unspecified Chronic liver failure Qualifiers: Hepatic coma status: without hepatic coma Qualified Code(s): K72.10 - Chronic hepatic failure without coma Instructions: Abdominal Pain (ED), Anemia (ED) Condition: Good Pt referred to PMD for follow-up: Yes IPMP verified?: No Additional Instructions: Please call your Family Physician as soon as possible to schedule a follow-up appointment. Allergies/Adverse Reactions: Allergies No Known Allergies Allergy (Verified 03/25/18 09:28) Home Medications: Ambulatory Orders Lactulose 10 gm PO TID 09/10/17 Ondansetron HCl [Zofran] 4 mg PO Q4H PRN 09/10/17 Potassium Chloride [K-Dur] 20 meq PO DAILY 09/10/17 Disposition Discussed With: Patient
== END 2018-03-25 10:52 | disposition home or self-care (01) ==
LOC: ED 09:21
DX: R10.9 Unspecified abdominal pain (principal); G89.29 Other chronic pain; D64.9 Anemia, unspecified; K72.10 Chronic hepatic failure without coma
CPT/HCPCS: 36415; 80053; 82150; 83690; 85025; 99283

== ENCOUNTER 2018-03-26 11:37 | Outpatient (CLI) ==
[2018-03-25 09:26] VITALS: BMI 33.7
== END 2018-03-26 11:46 | disposition short-term general hospital (02) ==
LOC: AMBL 11:37
PROVIDERS: ATTEND Emergency Medicine
DX: R11.2 Nausea with vomiting, unspecified (principal); K74.60 Unspecified cirrhosis of liver; K85.90 Acute pancreatitis without necrosis or infection, unspecified; R14.0 Abdominal distension (gaseous)

== ENCOUNTER 2018-11-01 22:29 | Outpatient (CLI) | END 2018-11-01 22:44 | disposition short-term general hospital (02) | LOC: AMBL 22:29 | PROVIDERS: ATTEND Family Medicine | DX: R00.0 Tachycardia, unspecified (principal); F15.10 Other stimulant abuse, uncomplicated; K74.60 Unspecified cirrhosis of liver; R17 Unspecified jaundice ==

== ENCOUNTER 2018-12-30 11:16 | Emergency (ER) | payer MEDICAID, OTHER ==
[2018-12-30 11:22] VITALS: BP 142/87; TEMP 101.6; BMI 38.5
--- NOTE | 2018-12-30 12:06 | CT ---
EXAM: CT chest without contrast HISTORY: Cough COMPARISON: 09/26/2016 TECHNIQUE: CT chest performed without intravenous contrast. Coronal and sagittal reformatted images obtained FINDINGS: Thoracic inlet appears normal. Heart normal in size. No pericardial effusion. Aorta nor mal in caliber. Small hiatal hernia. Evaluation for lymphadenopathy limited without contrast. No l ymphadenopathy identified. Mild bilateral gynecomastia. Nodular contour of the liver. Liver incomp letely imaged. Spleen is enlarged, incompletely imaged. Upper abdominal varices present. No acute abnormalities of the bones. Degenerative change in the spine. Central airway patent. Mild dependen t density lung bases. No airspace consolidation. No pleural effusion. No pneumothorax. IMPRESSION: 1. No acute cardiopulmonary process. 2. Cirrhosis with findings of portal hypertension including splenomegaly and upper abdominal ascites .
--- NOTE | 2018-12-30 13:22 | ED.PDOC ---
General ED Provider: Dr. FRANCESCO BRITTON Chief Complaint: Respiratory Complaint Stated Complaint: FLU LIKE SYMPTOMS Time Seen by Physician: 11:18 Mode of Arrival: Walk-In Information Source: Patient Exam Limitations: No limitations Primary Care Provider: PRASAD BHATIA Nursing and Triage Documentation Reviewed and Agree: Yes Does patient meet sepsis criteria?: No System Inflammatory Response Syndrome: Not Applicable Sepsis Protocol: For patient's 13 years and over: Temp is 96.8 and below OR 101 and greater Pulse >90 BPM Resp >20/minute Acutely Altered Mental Status Are patient's symptoms suggestive of a new infection, such as: -Pneumonia -Skin, Soft Tissue -Endocarditis -UTI -Bone, Joint Infection -Implantable Device -Acute Abdominal Infection -Wound Infection -Meningitis -Blood Stream Catheter Infection -Unknown Respiratory Complaint Exam - Respiratory Complaint/Exam Symptoms Are: Still present Timing: Intermittent Initial Severity: Mild Current Severity: Mild Location: Nose, Throat, Chest Character: Reports: Non-productive cough, Dry cough Aggravating: Reports: URI, Weather Associated Signs and Symptoms: Reports: URI, Nasal congestion, Sore throat. Denies: Rapid breathing, Dyspnea, Fever, Chills, Chest pain, Pleuritic chest pain, Wheezing, Hemoptysis, Dizziness, Calf pain, Calf swelling, Edema, Hoarseness, Sinus discomfort, Vomiting, Weight loss, Decreased oral intake, Increased thirst, Increased appetite, Increased urination Related Surgical History: Reports: None Pulmonary Embolism Risk Factors: None Cardiac Risk Factors: Reports: None Pseudomonas Risk Factors: Reports: None Tuberculosis Risk Factors: Reports: None Status Asthmaticus Risk Factors: Reports: None Home Oxygen Use: No Recent Stress Test: No Recent Echo/LV Function: No Current Antibiotic Use: No Current Asthma Medication Use: No Respiratory Distress: None Inadequate Respiratory Effort: No Dysphagia Present: No Stridor Present: No JVD Present: No Accessory Muscle Use: No Retractions: Not Present Diminished Breath Sounds: No Sinus Tenderness: None ( ) Grunting Respirations: No Kussmaul Respirations: No Differential Diagnoses: Pneumonia, Bronchitis, URI, Influenza Review of Systems - Review Of Systems Constitutional: Reports: Chills, Malaise, Loss of appetite Eyes: Reports: No symptoms Ears, Nose, Mouth, Throat: Reports: Throat pain Respiratory: Reports: Cough Cardiac: Reports: No symptoms GI: Reports: No symptoms : Reports: No symptoms Musculoskeletal: Reports: No symptoms Skin: Reports: No symptoms Neurological: Reports: No symptoms Endocrine: Reports: No symptoms Hematologic/Lymphatic: Reports: No symptoms All Other Systems: Reviewed and Negative Past Medical History - Past Medical History Previously Healthy: No Endocrine: Reports: None Cardiovascular: Reports: None Respiratory: Reports: None Hematological: Reports: None Gastrointestinal: Reports: GERD, Liver (cirrosis), Gallstones, Pancreatitis Genitourinary: Reports: None Neuro/Psych: Reports: Migraine, Anxiety, Depression Musculoskeletal: Reports: None Cancer: Reports: None - Surgical History General Surgical History: Reports: Cholecystectomy, Unknown - Family History Family History: Reports: Unknown - Social History Smoking Status: Former smoker Hx Substance Use: Yes (ALCOHOL) Alcohol Screening: None Physical Exam - Physical Exam Appearance: Well-appearing, No pain distress, Well-nourished Eyes: SULEIMAN, EOMI, Conjunctiva clear ENT: Ears normal, Nose normal, Oropharynx normal Respiratory: Airway patent, Breath sounds clear, Breath sounds equal, Respirations nonlabored, Rhonchi Cardiovascular: RRR, Pulses normal, No rub, No murmur GI/: Soft, Nontender, No masses, Bowel sounds normal, No Organomegaly Musculoskeletal: Normal strength, ROM intact, No edema, No calf tenderness Skin: Warm, Dry, Normal color Neurological: Sensation intact, Motor intact, Reflexes intact, Cranial nerves intact, Alert, Oriented Psychiatric: Affect appropriate, Mood appropriate Interpretation - Radiology Interpretation Radiology Interpretation By: Radiologist Radiology Results: No acute changes Exam Interpreted: CT Scan Re-Evaluation - Re-Evaluation Time of Re-Evaluation: 12:00 Status: Improved Vital Signs Stable: Yes Pain Level: 0 Appearance: NAD Lungs: Clear Skin: Warm and Dry Neuro: Alert and Oriented X3 CV: RRR Additional Comments: NO RESP DISTRESS - Re-Evaluation Time of Re-Evaluation: 13:21 Status: Unchanged Vital Signs Stable: Yes Pain Level: 0 Appearance: NAD Skin: Warm and Dry Neuro: Alert and Oriented X3 CV: RRR Critical Care Note - Critical Care Note Total Time (mins): 0 Course - Course Hematology/Chemistry: 12/30/18 11:57 12/30/18 11:57 Orders, Labs, Meds: Lab Review 12/30/18 12/30/18 12/30/18 11:35 11:57 11:57 WBC 5.60 RBC 4.32 L Hgb 12.4 L Hct 37.5 L MCV 86.8 MCH 28.7 MCHC 33.1 RDW Coeff of Shana 13.6 Plt Count 51 L Immature Gran % (Auto) 0.4 Neut % (Auto) 77.0 Lymph % (Auto) 8.9 L [place] % (Auto) 12.1 H Eos % (Auto) 1.4 Baso % (Auto) 0.2 Immature Gran # (Auto) 0.0 Neut # (Auto) 4.3 Lymph # (Auto) 0.5 L [place] # (Auto) 0.7 Eos # (Auto) 0.1 Baso # (Auto) 0.0 Sodium 137.1 Potassium 3.26 L Chloride 104.0 Carbon Dioxide 24.3 Anion Gap 12.06 BUN 9.7 Creatinine 0.55 L Estimated GFR (MDRD) 164.00 BUN/Creatinine Ratio 17.63 Glucose 151.8 H Lactic Acid Calcium 7.97 L Total Bilirubin 1.64 H AST 38.5 ALT 21.8 Alkaline Phosphatase 161.0 H Total Protein 6.45 Albumin 3.53 Globulin 2.92 Albumin/Globulin Ratio 1.20 Procalcitonin Influ A Molecular Assay Negative by naat Influ B Molecular Assay Negative by naat 12/30/18 12/30/18 11:57 11:57 WBC RBC Hgb Hct MCV MCH MCHC RDW Coeff of Shana Plt Count Immature Gran % (Auto) Neut % (Auto) Lymph % (Auto) [place] % (Auto) Eos % (Auto) Baso % (Auto) Immature Gran # (Auto) Neut # (Auto) Lymph # (Auto) [place] # (Auto) Eos # (Auto) Baso # (Auto) Sodium Potassium Chloride Carbon Dioxide Anion Gap BUN Creatinine Estimated GFR (MDRD) BUN/Creatinine Ratio Glucose Lactic Acid 1.08 Calcium Total Bilirubin AST ALT Alkaline Phosphatase Total Protein Albumin Globulin Albumin/Globulin Ratio Procalcitonin 0.09 Influ A Molecular Assay Influ B Molecular Assay Orders Category Date Time Status BLOOD CULTURE Stat LAB 12/30/18 11:25 Received CBC W/ AUTO DIFF Stat LAB 12/30/18 11:57 Completed COMPREHENSIVE METABOLIC PANEL Stat LAB 12/30/18 11:57 Completed FLU A/B MOLECULAR Stat LAB 12/30/18 11:35 Completed LACTIC ACID Stat LAB 12/30/18 11:57 Completed MOLECULAR GROUP A STREP Stat LAB 12/30/18 11:35 Completed PROCALCITONIN Stat LAB 12/30/18 11:[address] CHEST W/O CONTRAST Stat RADS 12/30/18 11:29 Completed Vital Signs: Temp Pulse Resp BP Pulse Ox 12/30/18 11:16 101.6 F H 93 H 20 142/87 H 95 Departure - Departure Time of Disposition: 13:22 Disposition: HOME SELF-CARE Discharge Problem: Viral syndrome Anemia Qualifiers: Anemia type: unspecified type Qualified Code(s): D64.9 - Anemia, unspecified Instructions: Anemia (ED), Viral Syndrome (ED) Condition: Good Pt referred to PMD for follow-up: Yes IPMP verified?: No Additional Instructions: Please call your Family Physician as soon as possible to schedule a follow-up appointment. Allergies/Adverse Reactions: Allergies No Known Allergies Allergy (Verified 12/30/18 11:24) Home Medications: Ambulatory Orders Lactulose 10 gm PO TID 09/10/17 Ondansetron HCl [Zofran] 4 mg PO Q4H PRN 09/10/17 Potassium Chloride [K-Dur] 20 meq PO DAILY 09/10/17
== END 2018-12-30 13:30 | disposition home or self-care (01) ==
LOC: ED 11:16
DX: B34.9 Viral infection, unspecified (principal); D64.9 Anemia, unspecified
CPT/HCPCS: 36415; 80053; 83605; 84145; 85025; 87040; 87502; 87651; 99283